=== PATIENT | female | born 2000 | race African-American/Black ===

== ENCOUNTER 2019-03-24 15:10 | Inpatient (IN) ==
[2019-03-24] MEDS ORDERED: LACTATED RINGERS 1,000 ML IV ONE (16:19)
[2019-03-24] MEDS ORDERED: MEPERIDINE 25 MG/1 ML VIAL IV PRN (16:20)
[2019-03-24] MEDS: ONDANSETRON 4 MG/2 ML VIAL IV PRN (16:32)
[2019-03-24] MEDS ORDERED: ONDANSETRON 4 MG/2 ML VIAL IV PRN (18:38)
[2019-03-24 19:24] LABS: Basophils % 0.3 % (0.0-0.8); Eosinophils # 0.2 10*3/uL (0.0-0.87); Eosinophils % 1.4 % (0.00-10.9); Hematocrit 29.8 VOL% (35.7-47.0); Hemoglobin 9.1 GM/DL (12.0-16.0); Immature Granulocytes % 0.5 %; Immature Granulocytes Absolute 0.05 #; Lymphocytes # 1.3 10*3/uL (1.4-4.0); Lymphocytes % 11.7 % (21.3-54.2); Mean Corpuscular HGB Conc 30.5 GM/DL (32-36); Mean Corpuscular Volume 67.6 FL (87-102); Mean Platelet Volume 10.6 FL (9.6-12.0); Monocytes % 8.1 % (1.7-12.7); NRBC # 0.02 10*3/uL; Platelet Count 333 T/CUMM (130-400); Red Blood Count 4.41 MC/CUMM (3.8-5.5); Red Cell Distribution Width 14.7 % (9.3-17.3); White Blood Count 10.8 T/CUMM (4-12)
[2019-03-24] MEDS: LACTATED RINGERS 1,000 ML IV SCH (19:39)
[2019-03-24 19:40] LABS: Albumin 2.7 G/DL (3.4-5.0); Bilirubin,Total 0.6 MG/DL (0.2-1.0); Calcium 8.5 MG/DL (8.5-10.1); Osmolality,Calculated 272.5 MOS/KG (273-304); Total Protein 6.9 G/DL (6.4-8.3)
[2019-03-24] MEDS: BUTORPHANOL 2 MG/ML VIAL IV PRN (19:40)
[2019-03-25] MEDS: ONDANSETRON 4 MG/2 ML VIAL IV PRN (03:52)
[2019-03-25] MEDS: BUTORPHANOL 2 MG/ML VIAL IV PRN ×2 (03:52→21:30)
[2019-03-25] MEDS ORDERED: PROMETHAZINE 25 MG/1 ML VIAL IM ONE (22:15)
[2019-03-25] MEDS ORDERED: hydrOXYzine HCL 25 MG/1 ML VIAL IM PRN (22:15)
[2019-03-25] MEDS ORDERED: diphenhydrAMINE 50 MG/1 ML VIAL IV PRN ×2 (22:15)
[2019-03-25] MEDS ORDERED: NALOXONE 0.4 MG/ML VIAL IV PRN (22:15)
[2019-03-25] MEDS ORDERED: CITRIC ACID/SODIUM CITRATE 30 ML UDCUP PO ONE (22:17)
[2019-03-25] MEDS ORDERED: FAMOTIDINE 20 MG/2 ML VIAL IV ONE (22:17)
[2019-03-25] MEDS: LACTATED RINGERS 1,000 ML IV SCH (22:29)
[2019-03-25] MEDS ORDERED: fentaNYL 2 MCG/ROPIV 0.2% EPID 100 ML EPIDURAL SCH (22:30)
[2019-03-25] MEDS: ePHEDrine 50 MG/ML AMP IV PRN ×2 (23:42→23:50)
[2019-03-26] MEDS: LACTATED RINGERS 1,000 ML IV SCH (00:14)
[2019-03-26 01:11] LABS: Amorphous Crystals,Urine Moderate /HPF (Few); Apearance,Urine CLOUDY (Clear); Bacteria,Urine Few /HPF (Few); Bilirubin,Urine Negative (Negative); Blood, Urine Small mg/dL (Negative); Glucose,Urine (UA) 50 mg/dL (Negative); Ketones,Urine 5 mg/dL (Negative); Mucus,Urine Occasional /LPF (Occasional); Nitrite,Urine Negative (Negative); Protein,Urine 100 MG/DL; RBC,Urine 61 /HPF (0-4); Squamous Epithelial Cell,Urine Occasional /HPF (0-10); Urine Color Yellow (Yellow); Urine Specific Gravity 1.014 (1.001-1.035); Urine Urobilinogen < 2.0 EU/DL (0.2-1.0); WBC,Urine 24 /HPF (0-6)
[2019-03-26] MEDS ORDERED: OXYTOCIN/LR 30 UNIT/1,000 ML BAG IV ONE (01:50)
[2019-03-26] MEDS: OXYTOCIN/LR 20 UNIT/1,000 ML BAG IV SCH ×2 (02:43→02:47)
[2019-03-26] MEDS ORDERED: CARBOPROST TROMETHAMINE 250 MCG/ML AMP IM ONE ×2 (04:31→06:48)
[2019-03-26] MEDS ORDERED: miSOPROStoL 200 MCG TABLET ONE (04:31)
[2019-03-26] MEDS ORDERED: TRANEXAMIC ACID 1,000 MG/10 ML VIAL ONE (04:31)
[2019-03-26] MEDS ORDERED: METHYLERGONOVINE 0.2 MG/1 ML AMP ONE (04:31)
[2019-03-26] MEDS ORDERED: OXYTOCIN/LR 0 UNIT/0 ML BAG IV ONE (04:31)
[2019-03-26] MEDS ORDERED: SODIUM CHLORIDE 0.9% 100 ML IV ONE (04:32)
[2019-03-26] MEDS ORDERED: INFLUENZA VIRUS VACCINE 0.5 ML SYRINGE IM ONE (09:00)
[2019-03-26] MEDS: IBUPROFEN 800 MG TABLET PO PRN (11:46)
[2019-03-26] MEDS: DOCUSATE SODIUM 100 MG CAPSULE PO SCH (22:25)
[2019-03-27 05:48] LABS: Basophils # 0.1 10*3/uL (0.0-0.2); Basophils % 0.3 % (0.0-0.8); Eosinophils # 0.2 10*3/uL (0.0-0.87); Eosinophils % 1.4 % (0.00-10.9); Hematocrit 23.6 VOL% (35.7-47.0); Hemoglobin 7.1 GM/DL (12.0-16.0); Immature Granulocytes % 0.7 %; Immature Granulocytes Absolute 0.12 #; Lymphocytes # 2.3 10*3/uL (1.4-4.0); Lymphocytes % 13.2 % (21.3-54.2); Mean Corpuscular HGB Conc 30.1 GM/DL (32-36); Mean Corpuscular Volume 67.2 FL (87-102); Mean Platelet Volume 10.3 FL (9.6-12.0); Monocytes % 9.3 % (1.7-12.7); NRBC # 0.02 10*3/uL; Neutrophils % 75.1 % (38.7-73.9); Platelet Count 262 T/CUMM (130-400); Red Blood Count 3.51 MC/CUMM (3.8-5.5); Red Cell Distribution Width 14.7 % (9.3-17.3); White Blood Count 17.1 T/CUMM (4-12)
[2019-03-27] MEDS ORDERED: SODIUM CHLORIDE 0.9% 1,000 ML IV PRN (08:53)
[2019-03-27] MEDS: DOCUSATE SODIUM 100 MG CAPSULE PO SCH ×2 (09:07→21:06)
[2019-03-27] MEDS: FERROUS SULFATE 325 MG TABLET PO SCH ×2 (09:07→21:06)
[2019-03-27] MEDS: IBUPROFEN 800 MG TABLET PO PRN (13:44)
[2019-03-27 16:40] LABS: Hematocrit 29.9 VOL% (35.7-47.0)
[2019-03-27 16:48] LABS: Hemoglobin 9.3 GM/DL (12.0-16.0)
[2019-03-28 07:27] VITALS: BP 119/77
[2019-03-28] MEDS: DOCUSATE SODIUM 100 MG CAPSULE PO SCH (08:54)
[2019-03-28] MEDS: FERROUS SULFATE 325 MG TABLET PO SCH (08:54)
[2019-03-28] MEDS ORDERED: DIPH/TET/ACEL PERT BOOSTER VACCINE 0.5 ML VIAL IM ONE (11:08)
[2019-03-28] MEDS: IBUPROFEN 800 MG TABLET PO PRN (15:04)
== END 2019-03-28 17:00 | disposition home or self-care (01) | DRG 807 ==
LOC: N.LDOUT 15:10 → N.LD 15:12 → N.OB 03-26 09:38
PROVIDERS: ADMIT Obstetrics & Gynecology; ATTEND Obstetrics & Gynecology